=== PATIENT | male | born 1995 | race Hispanic/Latino ===

== ENCOUNTER 2018-04-12 12:55 | Emergency (ER) | payer OTHER ==
[~2018-04-12] VITALS: Ht 180.3 cm; Wt 94.8 kg
[~2018-04-12 12:55] MED LIST: NAPROXEN500 MG PO
[2018-04-12 12:57] VITALS: BP 141/83
--- NOTE | 2018-04-12 13:07 | ED THROAT/DENTAL COMPLAINT ---
History of Present Illness General Chief Complaint: Sore Throat, Dental Pain Stated Complaint: SORE THROAT Source: patient Exam Limitations: no limitations Vital Signs & Intake/Output Vital Signs & Intake/Output Vital Signs Date Time Temp Pulse Resp B/P B/P Pulse O2 O2 Flow FiO2 Mean Ox Delivery Rate 04/12 1257 98.7 71 18 141/83 99 Room Air Allergies Uncoded Allergies: SHRIMP (06/28/11) Reconcile Medications Naproxen 500 MG TAB 1 TAB PO BID PAIN/INFLAMMATION Triage Note: 22 Y/O MALE C/O L SIDED SORE THROAT AND L EAR PAIN X 48 HOURS. AFEBRILE QUICK STREP SENT Triage Nurses Notes Reviewed? yes Onset: Gradual Duration: day(s): Timing: recent history Severity: moderate HPI: 22yo male presents to ED complaining of sore throat for the past 2 days. Patient states her throat is worse on the left side. Patient also reports left- sided ear pain. Patient states he gets strep throat often, last had "strep throat" 2 days ago however he was not seen and evaluated, his symptoms went away in 2-3 days. No abdominal pain, nausea, fevers, difficulty swallowing. (Isi Thorne) Past History Travel History Traveled to [place] past 21 day No Medical History Any Pertinent Medical History? see below for history Neurological: NONE EENT: NONE Cardiovascular: NONE Respiratory: NONE Gastrointestinal: NONE Hepatic: NONE Renal: NONE Musculoskeletal: bone cyst Psychiatric: NONE Endocrine: NONE Blood Disorders: NONE Cancer(s): NONE HATCHERY WORKER/Reproductive: NONE Other Medical Hx: Testicular cyst Surgical History Surgical History: non-contributory Psychosocial History What is your primary language Divehi Tobacco Use: Quit >30 days ago Family History Hx Contributory? No (Isi Thorne) Review of Systems Review of Systems Constitutional: Reports: no symptoms. EENTM: Reports: see HPI. Respiratory: Reports: no symptoms. Cardiovascular: Reports: no symptoms. GI: Reports: no symptoms. Genitourinary: Reports: no symptoms. Musculoskeletal: Reports: no symptoms. Skin: Reports: no symptoms. Neurological/Psychological: Reports: no symptoms. Hematologic/Endocrine: Reports: no symptoms. Immunologic/Allergic: Reports: no symptoms. All Other Systems: Reviewed and Negative (Isi Thorne) Physical Exam Physical Exam General Appearance: well developed/nourished, no apparent distress, alert, awake Head: atraumatic, normal appearance Eyes: Bilateral: normal appearance. Ears: Bilateral: canal normal, Tympanic normal. Nose: normal inspection Mouth/Throat: normal mouth inspection, bilateral tonsillar swelling without erythema or exudates, no deviation of uvula Neck: mild left sided anterior cervical LAD Cardiovascular/Respiratory: no respiratory distress Back: normal inspection, normal range of motion Neurologic/Psych: awake, alert, oriented x 3 Skin: intact, normal color, warm/dry Core Measures ACS in differential dx? No Sepsis Present: No Sepsis Focused Exam Completed? No (Jyothi NEGRO,Isi Rothman) Progress Differential Diagnosis: epiglottitis, odontogenic abscess, annabel-tonsillar abscess, stomatitis/gingivitis, strep pharyngitis Plan of Care: Orders Procedure Date/time Status THROAT CULTURE W/QUICK STREP 04/12 1256 Active Patient has bilateral swollen tonsils without evidence for peritonsillar abscess. Rapid strep test is negative. Symptoms are likely related to viral pharyngitis. Patient to prevent for pain and swelling and increase fluids. Patient was given strict return precautions which he understands and agrees with. The patient is in no acute distress, nontoxic appearing, vital signs are stable. (Jyothi NEGRO,Isi Rothman) Departure Departure Disposition: HOME OR SELF CARE Condition: Stable Clinical Impression Primary Impression: Pharyngitis Qualifiers: Pharyngitis/tonsillitis etiology: unspecified etiology Qualified Code: J02.9 - Acute pharyngitis, unspecified Secondary Impressions: Ear pain Qualifiers: Laterality: left Qualified Code: H92.02 - Otalgia, left ear Referrals: Patient Has No Primary Care Dr (PCP/Family) Additional Instructions: Take ibuprofen 600-800 mg 3 times a day for pain and swelling. Increase fluids, drink plenty of cold liquids to help with YOUR sore throat. Continue Mucinex he may try DayQuil to help with her symptoms. With any worsening symptoms such as fevers, increasing pain, vomiting please return to the emergency department. Please note that there might be incidental findings in your evaluation that are unrelated to the current emergency department visit. Please notify your primary care doctor about this emergency department visit in order to obtain and review all of the testing performed so that these incidental findings can be monitored as needed. If you had an x-ray performed, please understand that some fractures may not be seen on the initial set of x-rays. If your symptoms persist you might need a repeat set of x-rays to check for such a fracture. If you had a laceration evaluated, please understand that foreign bodies such as glass or wood may not be visible to the naked eye or on plain x-rays. If the wound becomes red, swollen, increasingly more painful or if there is any drainage from the wound, please have it reevaluated by a physician for the possibility of a retained foreign body. If you're unable to follow up as outlined in the discharge instructions please return to the emergency department. Thank you for choosing the [facility] Emergency Department for your care. It was a pleasure to serve you today. Departure Forms: Customer Survey General Discharge Information (Jyothi NEGRO,Isi Rothman) PA/AVIONICS SYSTEM ENGINEER Co-Sign Statement Statement: ED Attending supervision documentation- [] I saw and evaluated the patient. I have also reviewed all the pertinent lab results and diagnostic results. I agree with the findings and the plan of care as documented in the PA's/AVIONICS SYSTEM ENGINEER's documentation. [X] I have reviewed the ED Record and agree with the PA's/AVIONICS SYSTEM ENGINEER's documentation. [] Additions or exceptions (if any) to the PAs/AVIONICS SYSTEM ENGINEER's note and plan are summarized below: [] (Blanco King DO)
== END 2018-04-12 14:14 ==
LOC: ERH 12:55
DX: J02.9 Acute pharyngitis, unspecified (principal); H92.02 Otalgia, left ear